=== PATIENT | male | born 1970 | race African-American/Black ===

== ENCOUNTER 2016-04-21 19:37 | Emergency (ER) | payer OTHER ==
[2016-04-21] MEDS ORDERED: ASPIRIN 81 MG TABLET, CHEWABLE PO ONE (20:13)
--- NOTE | 2016-04-21 20:15 | ER Document Report ---
ED Medical Screen (RME) - General Chief Complaint: Chest Tightness Stated Complaint: CHEST PAIN Mode of Arrival: Wheelchair Information source: Patient Notes: Patient reports having midsternal chest tightness that started 40 minutes prior to arrival while sitting down. Patient states that pain radiated to left arm and he had some dizziness with shortness of breath. Patient denies any cough or cold symptoms. Patient denies any nausea or vomiting. Patient states left arm still feels funny but his chest pain has resolved. Patient does report a significant family history of heart disease at an early age. Patient denies any personal history of heart disease at this time. TRAVEL OUTSIDE OF THE [place] IN LAST 30 DAYS: No - Related Data Allergies/Adverse Reactions: No Known Allergies Allergy (Unverified 01/24/14 13:02) Home Medications: Current Home Medications Aspirin [Aspirin 81 mg Chewable Tablet] 2 tab PO DAILY 04/21/16 [History] Diphenhydramine HCl [Benadryl] 25 mg PO DAILY 04/21/16 [History] Tramadol HCl [Tramadol HCl] 1 tab PO DAILY 04/21/16 [History] Physical Exam - Vital signs Vitals: Temp Pulse Resp BP Pulse Ox 97.9 F 88 16 151/90 H 88 L 04/21/16 19:56 04/21/16 19:56 04/21/16 19:56 04/21/16 19:56 04/21/16 19:56 - Cardiovascular Rhythm: Regular Heart sounds: S1 appreciated, S2 appreciated Murmur: No Course - Vital Signs Vital signs: Temp Pulse Resp BP Pulse Ox 97.9 F 88 16 148/90 H 88 L 04/21/16 19:56 04/21/16 19:56 04/21/16 19:56 04/21/16 20:07 04/21/16 19:56
[2016-04-21 20:38] LABS: ABSOLUTE BASOPHILS # (AUTO) 0.1 10^3/uL (0.0-0.2); ABSOLUTE EOSINOPHILS # (AUTO) 0.4 10^3/uL (0.0-0.6); ABSOLUTE LYMPHOCYTES (AUTO) 2.1 10^3/uL (0.5-4.7); ABSOLUTE MONOCYTES (AUTO) 0.8 10^3/uL (0.1-1.4); BASOPHILS % (AUTO) 0.8 % (0-2); EOSINOPHILS % (AUTO) 4.2 % (0-6); HEMATOCRIT 44.3 % (37.9-51.0); HEMOGLOBIN 15.1 g/dL (13.5-17.0); LYMPHOCYTES % (AUTO) 25.6 % (13-45); MEAN CORPUSCULAR HEMOGLOBIN 29.5 pg (27.0-33.4); MEAN CORPUSCULAR VOLUME 87 fl (80-97); MONOCYTES % (AUTO) 9.4 % (3-13); RED CELL DISTRIBUTION WIDTH 12.8 % (11.5-14.0); WHITE BLOOD COUNT 8.3 10^3/uL (4.0-10.5)
[2016-04-21 20:49] LABS: APPEARANCE,URINE CLEAR; BILIRUBIN,URINE NEGATIVE (NEGATIVE); GLUCOSE, URINE NEGATIVE (NEGATIVE); KETONES,URINE NEGATIVE (NEGATIVE); LEUKOCYTE ESTERASE,URINE NEGATIVE (NEGATIVE); NITRITE,URINE NEGATIVE (NEGATIVE); PROTEIN,URINE NEGATIVE (NEGATIVE); URINE SPECIFIC GRAVITY 1.012; UROBILINOGEN,URINE NEGATIVE mg/dL (<2.0)
[2016-04-21 20:57] LABS: ALANINE AMINOTRANSFERASE 40 U/L (21-72); ALBUMIN 4.7 g/dL (3.5-5.0); ALKALINE PHOSPHATASE 78 U/L (38-126); ANION GAP 13 (5-19); ASPARTATE AMINO TRANSFERASE 32 U/L (17-59); BILIRUBIN,TOTAL 0.6 mg/dL (0.2-1.3); BLOOD UREA NITROGEN 19 mg/dL (7-20); CALCIUM 9.3 mg/dL (8.4-10.2); CARBON DIOXIDE 29 mmol/L (22-30); CHLORIDE 100 mmol/L (98-107); CREATINE KINASE 443 U/L (55-170); CREATININE RESULT 1.46 mg/dL (0.52-1.25); GLUCOSE 98 mg/dL (75-110); POTASSIUM 4.2 mmol/L (3.6-5.0); SODIUM 142.2 mmol/L (137-145); TOTAL PROTEIN 7.6 g/dL (6.3-8.2)
[2016-04-21 21:04] LABS: URINE BARBITURATES SCREEN NEGATIVE; URINE METHADONE SCREEN NEGATIVE; URINE PHENCYCLIDINE SCREEN NEGATIVE
[2016-04-21 21:13] LABS: CREATINE KINASE MB 1.59 ng/mL (<4.55)
[2016-04-21 21:14] LABS: TROPONIN I < 0.012 ng/mL
--- NOTE | 2016-04-21 23:34 | ER Document Report ---
ED General - General Chief Complaint: Chest Tightness Stated Complaint: CHEST PAIN Mode of Arrival: Wheelchair Notes: Patient is a pleasant 45-year-old male who presents with complaint of chest tightness. Chest tightness is on the left-sided chest pain is nonradiating. No shortness of breath so she with. Occurred after eating. He's never had this before. He does have a history of acid reflux disease. He says this feels different than his usual acid reflux. He does not smoke. He does not do drugs. He has no history of high cholesterol hypertension or diabetes. He is not obese. He does have a strong family history of heart disease. TRAVEL OUTSIDE OF THE [place] IN LAST 30 DAYS: No - Related Data Allergies/Adverse Reactions: No Known Allergies Allergy (Unverified 01/24/14 13:02) Home Medications: Current Home Medications Aspirin [Aspirin 81 mg Chewable Tablet] 2 tab PO DAILY 04/21/16 [History] Diphenhydramine HCl [Benadryl] 25 mg PO DAILY 04/21/16 [History] Tramadol HCl [Tramadol HCl] 1 tab PO DAILY 04/21/16 [History] Past Medical History - General Information source: Patient - Social History Smoking Status: Never Smoker Frequency of alcohol use: None Drug Abuse: None Family History: Reviewed & Not Pertinent Review of Systems - Review of Systems Notes: My Normal Review Basic REVIEW OF SYSTEMS: CONSTITUTIONAL : Denies fever, chills, or sweats. Denies recent illness. EENT: Denies eye, ear, throat, or mouth pain or symptoms. Denies nasal or sinus congestion. CARDIOVASCULAR: Some chest tightness which has since resolved. RESPIRATORY: Denies cough, cold, or chest congestion. Denies shortness of breath, difficulty breathing, or wheezing. GASTROINTESTINAL: Denies abdominal pain. Denies nausea, vomiting, or diarrhea. Denies constipation. Last BM: MUSCULOSKELETAL: Denies neck or back pain or joint pain or swelling. SKIN: Denies rash or skin lesions. NEUROLOGICAL: Denies altered mental status or loss of consciousness. Denies headache. Denies weakness or paralysis or loss of use of either side. Denies problems with gait or speech. Denies sensory or motor loss. ALL OTHER SYSTEMS REVIEWED AND NEGATIVE. Physical Exam - Vital signs Vitals: Temp Pulse Resp BP Pulse Ox 97.9 F 88 16 151/90 H 88 L 04/21/16 19:56 04/21/16 19:56 04/21/16 19:56 04/21/16 19:56 04/21/16 19:56 - Notes Notes: General Appearance: Well nourished, alert, cooperative, no acute distress, no obvious discomfort. Well appearing. Vitals: reviewed, See vital signs table. Head: no swelling or tenderness to the head Eyes: PERRL, EOMI, Conjuctiva clear Mouth: No decreasd moisture Lungs: No wheezing, No rales, No rhonci, No accessory muscle use, good air exchange bilaterally. Heart: Normal rate, Regular rythm, No murmur, no rub Abdomen: Normal BS, soft, No rigidity, No abdominal tenderness, No guarding, no rebound, no abdominal masses, no organomegaly Extremities: strength 5/5 in all extremities, good pulses in all extremities, no swelling or tenderness in the extremities, no edema. Skin: warm, dry, appropriate color, no rash Neuro: speech clear, oriented x 3, normal affect, responds appropriately to questions. Course - Vital Signs Vital signs: Temp Pulse Resp BP Pulse Ox 97.9 F 88 16 148/90 H 97 04/21/16 19:56 04/21/16 19:56 04/21/16 19:56 04/21/16 20:07 04/21/16 20:13 - Laboratory Result Diagrams: 04/21/16 20:16 04/21/16 20:16 Laboratory results interpreted by me: 04/21/16 04/21/16 20:03 20:16 Creatinine 1.46 H Est GFR (Non-Af Amer) 52 L Creatine Kinase 443 H Urine Ascorbic Acid 40 H - EKG Interpretation by Me Additional EKG results interpreted by me: 04/21/16 23:33 EKG is reviewed and interpreted by me. EKG shows sinus arrhythmia with a rate of [address] segment elevation or depression. No ischemic T-wave inversions. MO interval is slightly prolonged. QRS duration QTC also are within normal range. No old EKG available for comparison. 04/21/16 23:34 - Transfer of Care Notes: 04/22/16 01:03 Patient continues to be chest pain-free. He continues to look very well. I did discuss the patient the option of staying here for chronic workup versus going home and following up outpatient with sperm care doctor. He is low risk. His heart score is 2. His only significant risk factor is family history. I informed him of what the heart score was and what it meant. He only has a less than 2% chance of a major cardiac event the next 2 months. He is understanding of this. He says he prefers to follow-up outpatient with Dr. Muniz, his primary care physician. I encouraged him to take a daily aspirin. I encouraged him to return to ER if he has recurrent chest pain or feels unwell. Encouraged him to talk to Dr. Muniz about possible outpatient stress test. Patient agrees with plan and will be discharged home. Dictation of this chart was performed using voice recognition software; therefore, there may be some unintended grammatical errors. Discharge - Discharge Clinical Impression: Chest pain Qualifiers: Chest pain type: unspecified Qualified Code(s): R07.9 - Chest pain, unspecified Condition: Good Disposition: HOME, SELF-CARE Additional Instructions: CHEST PAIN OF UNCLEAR CAUSE: The exact cause of your chest pain isn't clear. Fortunately, there is no evidence of a dangerous medical condition. Further testing may be required to find the source of the pain. Most often, we find that this pain is coming from the chest wall -- the muscles or rib joints in the chest. But chest pain can come from the lung and lung lining, the esophagus, the heart valves or heart lining, and even the stomach or gallbladder. Rest. Eat lightly until the pain is gone. We may prescribe medicine for pain and inflammation. You should call the physician immediately if the pain radiates to the shoulder, jaw or arms; if you start to run a fever or develop a cough; or if you develop shortness of breath, or other new or alarming symptoms. NORMAL EXAM AND WORKUP: At this time, your examination and workup show no significant abnormality. No significant abnormal physical findings were noted. All laboratory, EKG, and imaging (x-ray) studies that were ordered show no significant abnormality. Although your examination and all studies that were ordered showed no significant abnormal finding, there are no examinations and no studies that are 100% accurate. There is always the possibility that some abnormality could exist and not be detected with physical examination or within the limits and capabilities of laboratory and other studies. You should return or follow up as you were instructed on your visit today for further evaluation if your symptoms do not resolve. ASPIRIN: Aspirin has been shown to have a beneficial effect on blood circulation by reducing the clotting effect of platelets in the blood. These beneficial effects can be achieved by taking just a single baby (81 mg) aspirin a day. It is recommended that any person over the age of forty take a single baby aspirin every day for heart and brain circulation, unless you are allergic to aspirin or have some significant bleeding disorder. It is strongly recommended that people who have proven cardiac or blood circulation disturbances should take a baby aspirin every day. FOLLOW-UP CARE: If you have been referred to a physician for follow-up care, call the physician s office for an appointment as you were instructed or within the next two days. If you experience worsening or a significant change in your symptoms, notify the physician immediately or return to the Emergency Department at any time for re-evaluation. Please return to the ER immediately if you develop recurrent chest pain, difficulty breathing, or feel unwell. Please take 81mg of aspirin every day. Please follow up closely with your primary care physician to arrange for an outpatient cardiac stress test. Referrals: ALLY MUNIZ MD [Primary Care Provider] - Follow up tomorrow
[2016-04-22 01:13] VITALS: BP 142/84
--- NOTE | 2016-04-22 09:12 | EKG REPORT ---
SEVERITY:- ABNORMAL ECG - SINUS ARRHYTHMIA, RATE 74-105 FIRST DEGREE AV BLOCK BIATRIAL ABNORMALITIES : Confirmed by: Oneyda Ibarra 22-Apr-2016 09:12:15
== END 2016-04-22 01:12 | disposition home or self-care (01) ==
LOC: ER 19:37
DX: R07.89 Other chest pain (principal); I49.9 Cardiac arrhythmia, unspecified; K21.9 Gastro-esophageal reflux disease without esophagitis; Z82.49 Family history of ischemic heart disease and other diseases of the circulatory system
CPT/HCPCS: 93005; 99285; 36415; 82553; 82550; 83690; 85025; 80053; 81001; 84484; 71020; 93010; G0479; 80307

== ENCOUNTER → 2016-05-17 | Outpatient (CLI) | payer OTHER | LOC: RAD 07:23 | PROVIDERS: ATTEND Physician Assistant | DX: R51 Headache (principal) | CPT/HCPCS: 70450 ==

== ENCOUNTER → 2016-06-25 | Outpatient (CLI) | payer OTHER | LOC: RAD 08:07 | PROVIDERS: ATTEND Physician Assistant | DX: R10.12 Left upper quadrant pain (principal); R10.13 Epigastric pain | CPT/HCPCS: 76705 ==

== ENCOUNTER → 2017-11-06 | Outpatient (CLI) | payer OTHER ==
--- NOTE | 2017-11-06 12:10 | RADIOLOGY REPORT (SQ) ---
EXAM DESCRIPTION: C SP 4 OR 5 VIEWS COMPLETED DATE/TIME: 11/06/2017 11:24 am REASON FOR STUDY: THORACIC SPINE PAIN; CERVICALGIA M54.6 PAIN IN THORACIC SPINE M54.2 CERVICALGIA COMPARISON: None. NUMBER OF VIEWS: Five views including obliques. TECHNIQUE: AP, lateral, obliques and odontoid radiographic images acquired of the cervical spine. LIMITATIONS: None. FINDINGS: MINERALIZATION: Normal. SEGMENTATION: Normal. ALIGNMENT: Normal. VERTEBRAE: Maintained height. No fracture or worrisome bone lesion. DISCS: There is decrease in the C5-C6 and C6-C7 disc space heights with associated osteophytic lippin g. POSTERIOR ELEMENTS: Pedicles and facets are intact. No posterior arch defects. Facet arthropathy is present. FORAMINA: Narrowed at the levels of maximal disc and facet disease. HARDWARE: None in the spine. PARASPINAL SOFT TISSUES: Normal. OTHER: No other significant finding. IMPRESSION: Degenerative changes as noted above TECHNICAL DOCUMENTATION: JOB ID: [id number] [employer]- All Rights Reserved Reading location - IP/workstation name: [email or web address]
--- NOTE | 2017-11-06 12:22 | RADIOLOGY REPORT (SQ) ---
EXAM DESCRIPTION: T SPINE AP/LAT COMPLETED DATE/TIME: 11/06/2017 11:24 am REASON FOR STUDY: THORACIC SPINE PAIN; CERVICALGIA M54.6 PAIN IN THORACIC SPINE M54.2 CERVICALGIA COMPARISON: None. NUMBER OF VIEWS: Two views. TECHNIQUE: AP and lateral radiographic images acquired of the thoracic spine. LIMITATIONS: None. FINDINGS: MINERALIZATION: Normal. ALIGNMENT: Normal. No scoliosis. VERTEBRAE: No fracture or bone lesion. Maintained height, normal segmentation. DISCS: No significant loss of height or significant narrowing. No large osteophytes. HARDWARE: None in the spine. MEDIASTINUM AND SOFT TISSUES: Normal heart size and aortic contour. No soft tissue abnormality. VISUALIZED LUNG BASS: Clear. OTHER: No other significant finding. IMPRESSION: NO SIGNIFICANT RADIOGRAPHIC FINDING IN THE THORACIC SPINE. TECHNICAL DOCUMENTATION: JOB ID: [id number] [employer]- All Rights Reserved Reading location - IP/workstation name: [email or web address]
== END ==
LOC: OD 11:08
PROVIDERS: ATTEND Family Medicine
DX: M54.6 Pain in thoracic spine (principal); M54.2 Cervicalgia
CPT/HCPCS: 72050; 72070

== ENCOUNTER → 2019-10-28 | Outpatient (CLI) | payer OTHER ==
--- NOTE | 2019-10-28 16:18 | RADIOLOGY REPORT (SQ) ---
EXAM DESCRIPTION: U/S NON-OB PELVIS W/O DOP IMAGES COMPLETED DATE/TIME: 10/28/2019 1:53 pm REASON FOR STUDY: R10.31 RIGHT LOWER QUADRANT PAIN R10.31 RIGHT LOWER QUADRANT PAINI51.7 CARDIOME KERA COMPARISON: None. TECHNIQUE: Dynamic and static grayscale images acquired of the pelvis via transabdominal approach an d recorded on PACS. Additional selected color Doppler and spectral images recorded. LIMITATIONS: None. FINDINGS: Sonographic imaging of the right inguinal hernia and right groin are present. Lymphadenop athy is seen in the right groin with the largest node measuring 23 x 11 x 3 mm. Mobile contents are seen in the right inguinal canal with Valsalva maneuver. IMPRESSION: Right inguinal hernia. Right inguinal adenopathy. TECHNICAL DOCUMENTATION: JOB ID: [id number] 2010 [employer]- All Rights Reserved Rev-09/05 Reading location - IP/workstation name: [email or web address]
--- NOTE | 2019-10-28 16:20 | RADIOLOGY REPORT (SQ) ---
EXAM DESCRIPTION: U/S SCROTUM W/O DOPPLER IMAGES COMPLETED DATE/TIME: 10/28/2019 1:54 pm REASON FOR STUDY: R10.31 RIGHT LOWER QUADRANT PAIN R10.31 RIGHT LOWER QUADRANT PAIN I51.7 CARDIOME KERA COMPARISON: None. TECHNIQUE: Static and realtime uriarte scale imaging of the scrotum and testes. Selected color Doppler and spectral images recorded to document blood flow. LIMITATIONS: None. FINDINGS: RIGHT: TESTICLE: Normal size, 4.2 x 2.9 x 2 cm. Normal echotexture. Normal blood flow. No mass. EPIDIDYMIS: Normal, 10 mm. HYDROCELE OR VARICOCELE: No. HERNIA OR EXTRA-TESTICULAR MASS: No. OTHER: No other significant finding. LEFT: TESTICLE: Normal size, 3.6 x 2.8 x 2 cm. . Normal echotexture. Normal blood flow. No mass. EPIDIDYMIS: Normal, 11 mm. HYDROCELE OR VARICOCELE: No. HERNIA OR EXTRA-TESTICULAR MASS: No. OTHER: No other significant finding. IMPRESSION: NORMAL SCROTAL ULTRASOUND. NO EVIDENCE OF TESTICULAR MASS OR TORSION. TECHNICAL DOCUMENTATION: JOB ID: [id number] [employer]- All Rights Reserved Reading location - IP/workstation name: [email or web address]
--- NOTE | 2019-10-28 19:32 | XCELERA REPORT ---
[address] [address] Transthoracic Echocardiogram Report Name: EMANUEL GARNER Age: 49 yrs Gender: Male : 1970 Patient Status: Outpatient Patient Location: RAD Study Date: 10/28/2019 03:10 PM Height: 70 in Weight: 179 lb BSA: 2.0 m2 Reason For Study: LVH Ordering Physician: ERICK^GARLAND^^^PA Performed By: Mirna Boogie Interpretation Summary No significant posterior pericardial effusion. Normal AV, three cusps, no , no AR. No mitral annular calcification. No MS, no MVP. Mild eccentricMR with No left atrial enlargement, BHUPENDRA not calculated. Mild concentric LVH (IVS/PW = 11/10 mm), LVEF 60-65%, stage I LV diastolic dysfunction, Incomplete visualization of all segments of LV, apical 2 chamber view suboptimal, no LV enlargement. Normal Tricuspid valve, mild TV regurgitation. No pulmonary hypertension, RVSP 25 mmHg, RAP 3 mmHg. Right heart is normal size, no suspicion of RV systolic dysfunction or enlargement. IVC normal. Trace PA. Summary of findings = Borderline LVH, normal LVEF, with stage I LV Diastolic Dysfunction. Incomplete LV segmental analysis due poor apical 2 chamber view. Mild physiological MR, TR, PA. Dr Dionisio Dykes. MMode/2D Measurements & Calculations RVDd: 2.0 cm LVIDd: 4.8 cm FS: 30.5 % Ao root diam: 3.6 cm IVSd: 1.1 cm LVIDs: 3.3 cm EDV(Teich): Ao root area: LVPWd: 1.0 cm 105.3 ml ESV(Teich): 10.3 cm2 44.3 ml LA dimension: 2.7 cm EF(Teich): 57.9 % LVLd ap4: 6.2 cm SV(MOD-sp4): EDV(MOD-sp4): 53.0 ml 81.0 ml LVLs ap4: 5.6 cm ESV(MOD-sp4): 28.0 ml EF(MOD-sp4): 65.4 % Doppler Measurements & Calculations MV E max sandra: MV P1/2t max sandra: Ao V2 max: LV V1 max P.0 cm/sec 108.6 cm/sec 94.1 cm/sec 2.6 mmHg MV A max sandra: MV P1/2t: 42.9 msec Ao max PG: LV V1 max: 79.9 cm/sec 3.5 mmHg 80.9 cm/sec MV E/A: 0.91 MVA(P1/2t): 5.1 cm2 MV dec slope: 741.5 cm/sec2 MV dec time: 0.23 sec KATELYN V2 max: PI end-d sandra: TR max sandra: MV P1/2t-pr_phl: 81.9 cm/sec 100.8 cm/sec 232.7 cm/sec 42.9 msec PA max PG: TR max P.7 mmHg 21.7 mmHg I WMSI = 1.25 % Normal = 75 Segments Size X - Cannot 1 - Normal 2 - 3 - Akinetic4 - 1-2 small Interpret Hypokinetic Dyskinetic 3-5 moderate 5 - 6-14 large Aneurysmal 15-16 diffuse : AYO^^^Dionisio Coronel
== END ==
LOC: RAD 13:00
PROVIDERS: ATTEND Physician Assistant
DX: K40.90 Unilateral inguinal hernia, without obstruction or gangrene, not specified as recurrent (principal); R10.31 Right lower quadrant pain; I51.7 Cardiomegaly
CPT/HCPCS: 76856; 76870; 93306

== ENCOUNTER → 2019-12-03 | Outpatient (CLI) | payer OTHER ==
--- NOTE | 2019-12-03 16:24 | RADIOLOGY REPORT (SQ) ---
EXAM DESCRIPTION: BARIUM SWALLOW ESOPHAGUS IMAGES COMPLETED DATE/TIME: 12/03/2019 10:19 am REASON FOR STUDY: EPIGASTRIC PAIN R10.13 EPIGASTRIC PAIN COMPARISON: None. TECHNIQUE: Under fluoroscopic guidance, patient ingested effervescent granules followed by thick and thin barium. Fluoroscopic spot images and routine radiographic images acquired and stored on PACS. 12 MM BARIUM TABLET GIVEN: Barium tablet passed through the esophagus and into the stomach without de lay. LIMITATIONS: None. FLUOROSCOPY TIME: FLUORO TIME: 2.1 minutes 6 images saved to PACS. FINDINGS: NEUROMUSCULAR COORDINATION OF SWALLOW: Normal. No aspiration. ESOPHAGEAL MOTILITY: Normal peristalsis. No esophageal spasm. ESOPHAGEAL MUCOSA: Normal mucosa without masses or ulceration. GASTRO-ESOPHAGEAL JUNCTION: No hiatal hernia or reflux. NON-GI TRACT STRUCTURES: No significant finding. OTHER: No other significant finding. IMPRESSION: NORMAL DOUBLE CONTRAST BARIUM SWALLOW. RECOMMENDATION: None COMMENT: None Quality ID [id number]: Final reports for procedures using fluoroscopy that document radiation exposure diana estefani, or exposure time and number of fluorographic images (if radiation exposure indices are not avail able) TECHNICAL DOCUMENTATION: JOB ID: [id number] 2010 [employer]- All Rights Reserved Reading location - IP/workstation name: [id number]
== END ==
LOC: RAD 09:38
PROVIDERS: ATTEND Physician Assistant
DX: R10.13 Epigastric pain (principal)
CPT/HCPCS: 74220